=== PATIENT | male | born 1955 | race Caucasian/White ===

== ENCOUNTER 2020-03-24 08:48 | Inpatient (IN) | payer MEDICARE, OTHER ==
[~2020-03-24] VITALS: Ht 170.2 cm; Wt 81.7 kg
[2020-03-24] MEDS ORDERED: METO25 PO (09:07)
[2020-03-24] MEDS ORDERED: FURO20 PO (09:07)
[2020-03-24] MEDS ORDERED: METF-960 PO (09:07)
[2020-03-24] MEDS ORDERED: LISI-661 PO (09:07)
[2020-03-24 09:12] LABS: HEMATOCRIT 41.2 % (41-53); HEMOGLOBIN 13.1 g/dL (13.5-17.5); MEAN CORPUSCULAR HEMOGLOBIN 27.6 pg (26.0-34.0); MEAN CORPUSCULAR HGB CONC 31.9 G/dL (31.0-37.0); MEAN CORPUSCULAR VOLUME 86 fL (80-100); PLATELET COUNT (AUTO) 177 K/uL (150-450); RED BLOOD CELL COUNT(AUTO) 4.77 MIL/uL (4.50-5.90); RED CELL DISTRIBUTION WIDTH 16.5 % (11.5-14.5)
[2020-03-24 09:22] LABS: ANION GAP 7 mmol/L (8-16); CALCIUM, TOTAL 9.6 mg/dL (8.8-10.5); CARBON DIOXIDE 29 mmol/L (22-29); CHLORIDE 105 mmol/L (98-107); CREATININE 1.11 mg/dL (0.60-1.30); GLOMERULAR FILTR. RATE CALC > 60 mL/min (>60); GLUCOSE,RANDOM 151 mg/dL (70-110); POTASSIUM 4.7 mmol/L (3.5-5.1); SODIUM SERUM 141 mmol/L (136-145); UREA NITROGEN, BLOOD 16 mg/dL (7-18)
[2020-03-24 09:25] LABS: GLUCOSE,POINT OF CARE 151 MG/DL (70-110)
[2020-03-24 09:30] LABS: ALANINE AMINOTRANSFERASE 27 U/L (12-78); ALBUMIN 4.2 g/dL (3.4-5.0); ALKALINE PHOSPHATASE 83 U/L (46-116); ASPARTATE AMINOTRANSFERASE 32 U/L (15-37); BILIRUBIN,TOTAL 0.7 mg/dL (0.1-1.0); TOTAL PROTEIN, SERUM 8.3 g/dL (6.4-8.2)
[2020-03-24] MEDS ORDERED: SODIUM CHLORIDE 0.9% 1,000 ML IV ONE (10:30)
[2020-03-24 11:33] LABS: BAND NEUTROPHILS % (MANUAL) 24 % (0-5); BLASTS, MANUAL % 5 (0-0); LYMPHOCYTES % (MANUAL) 1 % (22-44); METAMYELOCYTES % 5 % (0-0); MONOCYTES % (MANUAL) 2 % (2-9); MYELOCYTES % 7 % (0-0); SEGMENTED NEUTROPHILS % 56 % (40-70)
[2020-03-24 11:52] LABS: CREATINE KINASE, TOTAL ONLY 231 U/L (39-308)
[2020-03-24 13:57] LABS: APPEARANCE,URINE CLEAR (CLEAR); BILIRUBIN,URINE NEGATIVE (NEGATIVE); GLUCOSE, URINE (UA) NEGATIVE (NEGATIVE); KETONES,URINE NEGATIVE (NEGATIVE); LEUKOCYTE ESTERASE ,URINE NEGATIVE (NEGATIVE); NITRATE,URINE NEGATIVE (NEGATIVE); OCCULT BLOOD,URINE NEGATIVE (NEGATIVE); PROTEIN,URINE NEGATIVE (NEGATIVE); UROBILINOGEN,URINE 0.2 mg/dL (<=1.0)
[2020-03-24] MEDS ORDERED: ACETAMINOPHEN 325 MG TABLET PO PRN ×2 (14:15→14:45)
[2020-03-24] MEDS ORDERED: 0.9% SODIUM CHLORIDE 10 ML SYRINGE IVP PRN ×2 (14:15→14:45)
[2020-03-24] MEDS ORDERED: ONDANSETRON HCL 4 MG/2 ML VIAL IVP PRN ×2 (14:15→14:45)
[2020-03-24 14:19] LABS: BACTERIA,URINE None Seen /HPF (None Seen); RBC,URINE None Seen /HPF (0-2); WBC,URINE None Seen /HPF (0-5)
[2020-03-24 14:20] LABS: SQUAMOUS EPITHELIAL CELL,UR None Seen /LPF (None Seen)
[2020-03-24 14:28] LABS: AMPHET/METH SCREEN,URINE POSITIVE (NEGATIVE); BARBITURATE SCREEN, URINE NEGATIVE (NEGATIVE); BENZODIAZEPINES SCREEN,URINE NEGATIVE (NEGATIVE); CANNABINOID SCREEN,URINE NEGATIVE (NEGATIVE); COCAINE SCREEN,URINE NEGATIVE (NEGATIVE); METHADONE SCREEN, URINE NEGATIVE (NEGATIVE); OPIATE SCREEN,URINE NEGATIVE (NEGATIVE)
[2020-03-24 14:30] LABS: PHENCYCLIDINE SCREEN,URINE NEGATIVE (NEGATIVE)
[2020-03-24] MEDS ORDERED: DEXTROSE 50%-WATER 25 GM/50 ML SYRINGE IVP PRN (14:30)
[2020-03-24] MEDS ORDERED: DOCUSATE SODIUM 100 MG CAPSULE PO PRN (14:45)
[2020-03-24] MEDS ORDERED: ALBUTEROL SULFATE/IPRATROPIUM 100-20 MCG/SPRAY 4 GM INHALER IH PRN (14:45)
[2020-03-24] MEDS ORDERED: MAGNESIUM HYDROXIDE SUSPENSION 30 ML UDCUP PO PRN (14:45)
[2020-03-24] MEDS ORDERED: BISACODYL 10 MG RECTAL RECTAL SUPPOSITORY PR PRN (14:45)
[2020-03-24] MEDS ORDERED: GADOBUTROL 1 MMOL/ML 10 ML VIAL IVP ONE (15:03)
[2020-03-24 16:06] LABS: C-REACTIVE PROTEIN QUANT 0.35 mg/dL (0.00-0.30)
[2020-03-24 19:49] VITALS: BP 108/75
[2020-03-24 20:25] VITALS: BP 112/65
[2020-03-24] MEDS: METOPROLOL TARTRATE 25 MG TABLET PO SCH (20:28)
[2020-03-24] MEDS: HEPARIN SODIUM,PORCINE 5,000 UNITS/ML VIAL SQ SCH (20:29)
[2020-03-24 23:27] VITALS: BP 118/62
[2020-03-25 00:07] LABS: GLUCOMETER DEV NAME(LOC) 5N.3; GLUCOSE,POINT OF CARE 94 MG/DL (70-110)
[2020-03-25 04:12] VITALS: BP 114/63
[2020-03-25] MEDS: INSULIN LISPRO 100 UNITS/ML SQ PRN ×2 (06:24→11:50)
[2020-03-25 07:44] VITALS: BP 120/72
[2020-03-25 08:17] LABS: HEMATOCRIT 39.8 % (41-53); HEMOGLOBIN 12.5 g/dL (13.5-17.5); MEAN CORPUSCULAR HEMOGLOBIN 27.5 pg (26.0-34.0); MEAN CORPUSCULAR HGB CONC 31.5 G/dL (31.0-37.0); MEAN CORPUSCULAR VOLUME 87 fL (80-100); PLATELET COUNT (AUTO) 155 K/uL (150-450); RED BLOOD CELL COUNT(AUTO) 4.56 MIL/uL (4.50-5.90); RED CELL DISTRIBUTION WIDTH 16.3 % (11.5-14.5)
[2020-03-25 08:22] LABS: HEMOGLOBIN A1C 7.1 % (3.8-5.6)
[2020-03-25 08:49] LABS: ALBUMIN 3.4 g/dL (3.4-5.0); BILIRUBIN,TOTAL 0.5 mg/dL (0.1-1.0); C-REACTIVE PROTEIN QUANT 0.3 mg/dL (0.00-0.30); CALCIUM, TOTAL 8.8 mg/dL (8.8-10.5); CHOL/HDL RATIO 4.6 (4.2-7.3); CREATININE 1.22 mg/dL (0.60-1.30); FREE T4 (FREE THYROXINE) 1.34 ng/dL (0.76-1.46); POTASSIUM 3.9 mmol/L (3.5-5.1); THYROID STIMULATING HORMONE 1.06 uIU/mL (0.36-3.74); TOTAL PROTEIN, SERUM 7.1 g/dL (6.4-8.2)
[2020-03-25] MEDS ORDERED: LISINOPRIL 10 MG TABLET PO SCH (09:00)
[2020-03-25] MEDS ORDERED: PANTOPRAZOLE SODIUM 40 MG DR TABLET PO SCH (09:00)
[2020-03-25] MEDS: HEPARIN SODIUM,PORCINE 5,000 UNITS/ML VIAL SQ SCH (09:45)
[2020-03-25] MEDS: METOPROLOL TARTRATE 25 MG TABLET PO SCH (10:06)
[2020-03-25 11:30] LABS: BAND NEUTROPHILS % (MANUAL) 23 % (0-5); BLASTS, MANUAL % 3 (0-0); LYMPHOCYTES % (MANUAL) 5 % (22-44); METAMYELOCYTES % 4 % (0-0); MONOCYTES % (MANUAL) 2 % (2-9); MYELOCYTES % 4 % (0-0); SEGMENTED NEUTROPHILS % 59 % (40-70)
[2020-03-25 11:31] LABS: WBC MORPHOLOGY SMUDGE CELLS PRESENT
[2020-03-25 12:23] LABS: GLUCOMETER DEV NAME(LOC) 5N.3; GLUCOSE,POINT OF CARE 184 MG/DL (70-110)
[2020-03-25 12:23] LABS: GLUCOMETER DEV NAME(LOC) 5N.3; GLUCOSE,POINT OF CARE 196 MG/DL (70-110)
[2020-03-25 12:39] LABS: ERYTHROCYTE SEDIMENTATION RATE 12 MM/HR (0-15)
[2020-03-25] MEDS ORDERED: LACTULOSE 20 GM/30 ML SOLUTION UDCUP PO SCH (16:00)
[2020-03-25] MEDS ORDERED: ATORVASTATIN CALCIUM 20 MG TABLET PO SCH (21:00)
== END 2020-03-25 12:50 | disposition left against medical advice (07) | DRG 92 ==
LOC: EMS 08:50 → 5S 14:18 → UNDOADMIN 14:33 → 5N 15:45 → 5S 15:45
PROVIDERS: ADMIT Internal Medicine; ATTEND Internal Medicine
DX: G92 Toxic encephalopathy (principal); C92.10 Chronic myeloid leukemia, BCR/ABL-positive, not having achieved remission; I50.9 Heart failure, unspecified; E11.9 Type 2 diabetes mellitus without complications; F15.90 Other stimulant use, unspecified, uncomplicated; E78.5 Hyperlipidemia, unspecified; D72.829 Elevated white blood cell count, unspecified
CPT/HCPCS: 70450; 82728; 83036; 83605; 84145; 84439; 84443; 85379; 85651; 86140; 93005; A9585; G0480; J1644